=== PATIENT | male | born 1985 | race Caucasian/White ===

== ENCOUNTER 2024-06-16 12:33 | Emergency (ER) | payer OTHER, SELFPAY ==
[2024-06-16 12:41] VITALS: BP 167/96
[2024-06-16] MEDS: ADACEL 0.5 ML IM (13:16)
--- NOTE | 2024-06-16 13:42 | ED.GENMED ---
History of Present Illness
General
Chief Complaint: Skin Problem
Source: patient
Exam Limitations: none
Time Seen by Provider: 06/16/24 13:02
Nursing documentation reviewed up to this point in time: agreed with
History of Present Illness
History of Present Illness:
38-year-old male with no significant chronic medical issues presents for evaluation of a left lower leg injury. Patient reports that on Tuesday he was stepping on a cinderblock step when the cinderblock came loose and reared up on his leg, striking
him in the ndiaye/lower leg. He sustained a minor laceration to the area which he cleaned then has been providing some local wound care for and appears to be well-healing. He says that he had a bump in the area as well. Over the past few days he
has noticed that he has had an area of increasing bruising radiating down from the area towards his ankle and posterior calf. He says that his friends and family urged him to come to the emergency to be assessed. He has been ambulatory and
weightbearing. Despite the bruising extending down the lower leg his pain is localized to the area of the abrasion/laceration. Has not noticed any redness. No fevers. No drainage. Unsure of last tetanus.
Past History
Past History
ED Past Medical History: None
Social History
Tobacco: Non-smoker
Alcohol: Occasional
Drug: None
Personal:
Review of Systems
Review of Systems
All Other Systems: ROS reviewed and negative except as documented in HPI and ROS
Musculoskeletal: Reports other (Leg pain and bruising)
Skin: Reports other (Superficial laceration)
Phy Exam
Physical Exam
Physical Exam:
General: Well appearing and non-toxic
HEENT: protecting airway
Neck: appears supple
CV: No evidence of cyanosis
Resp: No accessory muscle use
Abd: Non-distended
Extremities: On exam patient's left lower extremity has edema of the lower portion of his ndiaye and ankle; he has hematoma and superficial laceration approximately 2 cm on the lower anterior ndiaye�superficial laceration is healing by secondary
intention, no erythema or warmth of the area; he has ecchymosis around the superficial laceration and extending towards the posterior calf as well as down towards the calcaneus; localized tenderness over hematoma but no tenderness of the ankle or
calf, no tenderness of the knee, weightbearing the ER; has a good strong palpable pulse left lower extremity
Neuro: Alert
Psych: Normal affect
Skin: Superficial laceration as above
Scores
Heart Failure Risk
Heart Failure Risk Score: Not Applicable
Heart Score for Chest Pain Patients
STEMI patient?: Not applicable
Withdrawal Assessment of Alcohol
Withdrawal Assessment Completed?: Not applicable
Course
Orders/Labs/Results
Orders:
Orders
06/16/24 13:05
Tetanus/Diphth/Acelpertussis [Adacel] 0.5 ml IM .ONCE ONE
CR Leg Tibia/fibula Left 2 Vw Urgent
Comment:
Reason For Exam: left lower leg swelling, bruising
06/16/24 13:55
US Periph Venous LOWER Ext LT Urgent
Comment:
Reason For Exam: LLE swelling
Vital Signs
Initial and Last Documented VS:
Initial Vital Signs
Temp Pulse Resp BP Pulse Ox
36.8 C 96 16 167/96 95
06/16/24 12:41 06/16/24 12:41 06/16/24 12:41 06/16/24 12:41 06/16/24 12:41
Last Documented Vital Signs
Temp Pulse Resp BP Pulse Ox
36.8 C 96 16 167/96 95
06/16/24 12:41 06/16/24 12:41 06/16/24 12:41 06/16/24 12:41 06/16/24 12:41
MDM/Problems Addressed
Differential Diagnosis Includes:
Fracture, hematoma
MDM/Problems Addressed:
38-year-old male presents for evaluation of swelling and bruising in the left lower leg after an injury as described above. He has a superficial laceration in the area which is healing by secondary intention, does not appear infected today. He is
unsure of his last tetanus shot�will provide tetanus booster today. He has a hematoma underneath the superficial laceration and my suspicion clinically is that the extending ecchymosis is likely gravitational leveling out of blood from this ndiaye
hematoma. We sent for an x-ray reviewed by me shows no acute fracture. Will check an ultrasound to rule out DVT but my suspicion is that this is likely hematoma that is leveling out due to gravity and can likely treat with Janes wrap, elevation, ice
and conservative treatment for the next few days.
DVT study negative. Will continue conservative measures as above. Patient indicated understanding. All questions answered.
*Radiology
Radiology exam reviewed: preliminary read by ED provider and radiology read reviewed
*Pulse Oximetry
Patient hypoxic: no
*Critical Care Note
Total Time (30-74mins, 75-104mins- exclusive of procedures): Not Applicable
Data Reviewed
Source: patient
ED Attending Note
-
Portions of this chart may have been created with voice recognition software.� Occasional wrong word or��sound alike� substitutions may have occurred due to the inherent limitations of voice recognition software.
Discharge Plan
Departure
Patient Disposition: Home (Routine Discharge)
Date of Disposition: 06/16/24
Time of Disposition: 14:31
Patient with high blood pressure during this ER visit?: Yes
Discharge Problem:
Hematoma of left lower leg, Laceration of leg
Instructions: Laceration, Hematoma
Referrals:
Royal Santos DO [Family Provider] - Call in 1-3 days for appt
Activity Restrictions/Additional Instructions:
Thank you for visiting the Emergency Department at [facility].
1. Please schedule a follow up appointment as directed. Call first thing tomorrow morning to make an appointment.
2. If indicated, please take your medications as instructed and indicated on discharge paperwork.
3. If any of your symptoms do not improve, or persist, or become more severe within 6-12 hours, please return to the emergency department for further care.
4. Please return to the emergency department if you develop a headache, neck pain/stiffness, fever greater than 100.4F, chest pain, shortness of breath, persistent nausea, vomiting, slurred speech, difficulty walking, numbness/tingling, weakness,
signs of infection or any other symptoms that are worrisome to you.
Please call [phone] if you have any questions.
Interventions
Interventions:
*Risk Screen - Suicide Last Done: 06/16/24 12:41
*General Assessment Last Done: 06/16/24 12:41
*Neglect/Abuse Screening Last Done: 06/16/24 12:41
*ED COVID-19 Vaccine History Last Done: 06/16/24 13:22
Discharge Date and Time
Print Language: [place]
[2024-06-16 14:35] VITALS: BP 163/89
== END 2024-06-16 14:42 | disposition home or self-care (01) ==
LOC: EMR 12:33
PROVIDERS: EMERGENCY PHYSICIAN Emergency Medicine; FAMILY PHYSICIAN Family Medicine
DX: S80.12XA Contusion of left lower leg, initial encounter (principal); S81.812A Laceration without foreign body, left lower leg, initial encounter; M79.605 Pain in left leg; R60.0 Localized edema; W22.8XXA Striking against or struck by other objects, initial encounter; R03.0 Elevated blood-pressure reading, without diagnosis of hypertension; Z23 Encounter for immunization
CPT/HCPCS: 99284; 90471; 73590; 90715; 93971

== ENCOUNTER → 2024-07-27 13:48 | Outpatient (REF) | payer OTHER, SELFPAY | LOC: HWRAD 13:48 | PROVIDERS: ATTENDING PHYSICIAN Family Medicine | DX: R22.42 Localized swelling, mass and lump, left lower limb (principal) | CPT/HCPCS: 93971 ==

== ENCOUNTER → 2024-08-01 12:32 | Outpatient (REF) | payer OTHER, SELFPAY | LOC: HWRAD 12:32 | PROVIDERS: ATTENDING PHYSICIAN Family Medicine | DX: S80.12XD Contusion of left lower leg, subsequent encounter (principal); M79.662 Pain in left lower leg; L02.416 Cutaneous abscess of left lower limb | CPT/HCPCS: 73701; Q9967 ==

== ENCOUNTER → 2024-10-09 09:17 | Outpatient (REF) | payer OTHER, SELFPAY | LOC: RAD 09:17 | PROVIDERS: ATTENDING PHYSICIAN Podiatrist Foot & Ankle Surgery; FAMILY PHYSICIAN Family Medicine | DX: S93.432A Sprain of tibiofibular ligament of left ankle, initial encounter (principal); S89.92XA Unspecified injury of left lower leg, initial encounter; M86.262 Subacute osteomyelitis, left tibia and fibula | CPT/HCPCS: 78315; A9503 ==

== ENCOUNTER → 2024-10-11 06:58 | Outpatient (REF) | payer OTHER, SELFPAY | LOC: RAD 06:58 | PROVIDERS: ATTENDING PHYSICIAN Podiatrist Foot & Ankle Surgery; FAMILY PHYSICIAN Family Medicine | DX: M86.262 Subacute osteomyelitis, left tibia and fibula (principal) | CPT/HCPCS: 78803; A9569 ==